=== PATIENT | male | born 1990 | race Caucasian/White ===

== ENCOUNTER 2019-10-22 11:04 | Emergency (ER) | payer MEDICAID ==
[~2019-10-22] VITALS: Ht 172.7 cm; Wt 70.5 kg
[~2019-10-22 11:04] MED LIST: HYDR-4383 PO
[2019-10-22] MEDS ORDERED: NO HOME MEDS (11:17)
--- NOTE | 2019-10-22 11:35 | NUR ---
COLLECTED PT'S BELONGINGS, AND PLACED THEM IN THE LOCKER LOCATED IN ROOM 27.
--- NOTE | 2019-10-22 11:36 | NUR ---
THE PHONE NUMBER FOR YAMILET (PT'S ) IS [phone].
--- NOTE | 2019-10-22 11:40 | NUR ---
Spoke with patient regarding whether or not patients wants to give out information to friends waiting in parking lot for update. Patient stated that he would like me to let them know that he is ok. I spoke with Pasquale, patients "best friend", and notified regarding patients request for me to just let him know he was ok. Pasquale stated that they had brought him in last night to [facility] at which he eloped and Pasquale stated that patient was at his house this morning prior to him going to work. Patient stated that [facility] had discharge him, but when pasquale had spoke with [facility] they stated that he had eloped. Per pasquale they then when back to [facility] at which [facility] told them he was no longer a patient with them and that they should go to [facility]. Pasquale took patient to [facility] and 5150 was written. Pasquale stated that patient has been threatening and having paranoid dillutional thoughts about his baby not being his, ect. Patients Cass andre, had told pasquale that she felt unsafe with patient in the house because of dillutions, intermittent agitation and aggression. Per Pasquale this is a new behavior meter changes records clerk the last few weeks. Patient is not currently suicidal and/or homicidal. ABI Keenan notified regarding friends and families concerns.
--- NOTE | 2019-10-22 11:47 | NUR ---
FRIENDS: TONYA YBARRA [phone] IRMA [phone]
--- NOTE | 2019-10-22 12:07 | NUR ---
PATIENT ANSWERS QUESTIONS APPROPIATELY, BUT NOW STATES HE NEEDS SLEEP, AND IS CONTROLLED WITH CANNIBOIDS. HE CONTINUES TO THINK, HE IS GOING TO LEAVE.
--- NOTE | 2019-10-22 12:11 | NUR ---
STATES "HE WON'T TELL ANYBODY ANDYTHING" AND HE IS TRYING TO EXPIDITE THIS PROCESS, EVERYTIME I EDUCATED HIM HE WILL BE HERE FOR 72HRS HE QUIETED. TWIN SISTER ON PHONE STATES, PATIENT HASN'T SLEEPING, HIS MOTHER USED DRUGS 14 YRS AGO SHE IS THINKING PTSD. MONDAY PATIENT WAS GIVEN SIX PILLS OF SEROQUEL, AND TAKEN FOUR SINCE.
[2019-10-22 12:13] LABS: CLARITY,URINE CLEAR (Clear); COLOR,URINE YELLOW (Yellow); GLUCOSE, URINE NEGATIVE (Neg); KETONES,URINE TRACE mg/dl (Neg); LEUKOCYTE ESTERASE ,URINE NEGATIVE (Neg); NITRITES, URINE NEGATIVE (Neg); OCCULT BLOOD,URINE TRACE-INTACT (Neg); PH,URINE 6.5 (4.8-8.0); PROTEIN,URINE NEGATIVE (Neg)
[2019-10-22 12:15] LABS: BASOPHILS % (AUTO) 0.5 % (0-1); EOSINOPHILS % (AUTO) 0.3 % (0-6); HEMATOCRIT 46.9 % (42.0-52.0); HEMOGLOBIN 16.1 g/dl (14.0-17.9); LYMPHOCYTES # (AUTO) 1.2 X10'3 (1.1-4.8); LYMPHOCYTES % (AUTO) 15.2 % (21-51); MEAN CORPUSCULAR HEMOGLOBIN 31.1 PG (27.0-31.0); MEAN CORPUSCULAR HGB CONC 34.3 g/dL (33.0-36.5); MEAN CORPUSCULAR VOLUME 90.8 FL (78-98); MEAN PLATELET VOLUME 9.3 FL (7.4-10.4); MONOCYTES # (AUTO) 0.7 X10'3 (0-0.9); MONOCYTES % (AUTO) 8.5 % (2-12); NEUTROPHILS # (AUTO) 5.9 X10'3 (1.8-7.7); NEUTROPHILS % (AUTO) 75.5 % (42-75); PLATELET COUNT 252 X10'3 (140-440); RED BLOOD COUNT 5.16 X10'6 (4.70-6.10); WHITE BLOOD COUNT 7.8 X10'3 (4.5-11.0)
[2019-10-22 12:17] LABS: URINE AMPHETAMINE SCREEN NEGATIVE (Neg); URINE BARBITUATE SCREEN NEGATIVE (Neg); URINE BENZODIAZEPINES SCREEN NEGATIVE (Neg); URINE CANNABINOID SCREEN POSITIVE (Neg); URINE COCAINE SCREEN NEGATIVE (Neg); URINE METHADONE SCREEN NEGATIVE (Neg); URINE OPIATE SCREEN NEGATIVE (Neg); URINE PHENCYCLIDINE SCREEN NEGATIVE (Neg)
[2019-10-22 12:20] LABS: UA COLLECTION TYPE CLN CATCH MIDSTREAM
[2019-10-22 12:21] LABS: BACTERIA,URINE NONE SEEN /HPF (Neg); RBC,URINE 0-2 /HPF (0-2); SQUAMOUS EPITHELIAL CELL,UR FEW /LPF (FEW); WBC,URINE NONE SEEN /HPF (0-4)
[2019-10-22 12:25] LABS: ALANINE AMINOTRANSFERASE 25 U/L (12-78); ALBUMIN 4.6 G/DL (3.4-5.0); ALBUMIN/GLOBULIN RATIO 1.4 (1.1-1.5); ALKALINE PHOSPHATASE 61 IU/L (46-116); ANION GAP 6 (8-16); ASPARTATE AMINO TRANSFERASE 24 U/L (10-37); BILIRUBIN,TOTAL 0.8 MG/DL (0.1-1.0); BLOOD UREA NITROGEN 10 MG/DL (7-18); BUN/CREATININE RATIO 8.5 (5.4-32.0); CALCIUM 9.5 MG/DL (8.5-10.1); CHLORIDE 105 MMOL/L (99-107); CREATININE 1.17 MG/DL (0.60-1.10); GLUCOSE 165 MG/DL (70-104); POTASSIUM 4.3 MMOL/L (3.5-5.1); SODIUM 142 MMOL/L (135-145); TOTAL PROTEIN 7.8 G/DL (6.4-8.2); eGFR 74 ML/MIN
[2019-10-22] MEDS ORDERED: LORazepam 1 MG tablet PO ONE ×2 (13:15→20:35)
[2019-10-22 13:45] LABS: ETHANOL < 0.010 GM/DL (0.0-0.010)
[2019-10-22] MEDS ORDERED: haloperidol lactate 5mg/ml inj IM ONE (13:45)
[2019-10-22] MEDS ORDERED: diphenhydrAMINE 50 mg/ml inj IM ONE (13:45)
--- NOTE | 2019-10-22 13:53 | NUR ---
Patient constantly asking for the phone, calling all family stating "he is getting out of here soon" and I have to interupt and remind him "he is staying for an evaluation" Just spoke to his girlfriend Cass and she stated "this has been going on for five days"
--- NOTE | 2019-10-22 14:03 | NUR ---
DREW MONTEJO PT'S TWIN SISTER'S PHONE NUMBER IS [phone]
--- NOTE | 2019-10-22 14:47 | NUR ---
Patient came up to the counter again, asking "when he is leaving because he is 100% himself"
--- NOTE | 2019-10-22 15:36 | NUR ---
FRIEND DAVID CALLED TO CHECK IN ON PT. HIS PHONE NUMBER IS [phone].
--- NOTE | 2019-10-22 16:10 | NUR ---
pt was accepted up to [facility] at [address] Tobias, no time of transfer has been given
--- NOTE | 2019-10-22 18:34 | NUR ---
Report to Racheal ALEX
--- NOTE | 2019-10-22 19:08 | NUR ---
The patient has been up on the unit and frequently intrussive up to the nursing station. He is accepting redirection at this time. He is hyperverbal. His mood is elevated. He is grandiose and believes that his "Dot" is to make others happy. He has poor insight and believes he is here "to help his friends" "My friends are concerned about my well being" He reports he has not been sleeping well at home. He frequentlyl asking to go home.
--- NOTE | 2019-10-22 19:48 | NUR ---
The patient was made aware that he will transferred to [facility] around 9PM. He accepted that without becoming upset. Understands he needs to be stabilized prior to being sent home.
--- NOTE | 2019-10-22 20:57 | NUR ---
The patient is labile in his mood. Forgetful that he is being admitted upstairs and stated he needs to leave immediately to go home to his family. Provider made aware and orders received for ativan 2mg. The patient is declining medication at this time. At this time he does not meet criteria for involuntary medications.
[2019-10-22 21:33] VITALS: BP 133/88
== END 2019-10-22 21:36 ==
LOC: ER 11:04
DX: F29 Unspecified psychosis not due to a substance or known physiological condition (principal); F12.90 Cannabis use, unspecified, uncomplicated; F15.90 Other stimulant use, unspecified, uncomplicated; Z87.891 Personal history of nicotine dependence
CPT/HCPCS: 36415; 80053; 80305; 80320; 81001; 84443; 85025; 99285

== ENCOUNTER 2019-10-22 16:00 | Inpatient (IN) | payer MEDICAID ==
[~2019-10-22] VITALS: Ht 172.7 cm; Wt 70.5 kg
[~2019-10-22 16:00] MED LIST changes: +NO HOME MEDS
[2019-10-22] MEDS ORDERED: acetaminophen 325mg tablet PO PRN ×2 (22:05)
[2019-10-22] MEDS ORDERED: LORazepam 1 MG tablet PO PRN (22:05)
[2019-10-22] MEDS ORDERED: loperamide 2mg capsule PO PRN (22:05)
[2019-10-22] MEDS ORDERED: mag hydrox/Alum hydrox/simeth 30ml oral suspension PO PRN (22:05)
[2019-10-22] MEDS ORDERED: magnesium hydroxide 30ml (MOM) UD suspension PO PRN (22:05)
[2019-10-22] MEDS: traZODone 50mg tablet PO PRN (22:37)
[2019-10-22] MEDS: hydrOXYzine 25 MG tablet PO PRN (22:38)
[2019-10-22] MEDS ORDERED: LORazepam 0.5 MG tablet PO PRN (22:58)
--- NOTE | 2019-10-22 23:12 | NUR ---
ADMIT NOTE: The patient entered the unit at 2210. He was checked for contraband, vitals recorded, then he was sent to the shower where 2 person skin check performed. His skin is intact with no visible wounds. After shower the patient was shown to his room and the rest of the unit. he was offered a snack, but he refused. The patient's friend reports he had recently went to [place], [place], met up with a childhood friend who reportedly struggles with methamphetamine abuse. When the patient returned, he was not the same. The patient admits to recent use of Marijuana. Patient presents with elevated affect, agitated, disorganized, confused, and becomes increasingly agitated at any mention of mental health symptoms. The patient's fiance Cass, via phone, and friends report they do not feel safe around him, and is unable to keep him safe in a home environment.
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
[2019-10-23 06:50] LABS: HEMOGLOBIN A1C 5.4 % (4.5-6.2)
[2019-10-23 06:54] LABS: CHOL/HDL RATIO 2.4 (0.00-4.99); CHOLESTEROL 177 MG/DL (0-200); HDL CHOLESTEROL 75 MG/DL (35-60); LDL CHOLESTEROL 84 MG/DL (50-100); TRIGLYCERIDES 41 MG/DL (20-135)
[2019-10-23 08:20] VITALS: BP 124/81
--- NOTE | 2019-10-23 10:00 | NUR ---
Group Therapy: Process Group This Clinicians goals for this process group were as follows: (1) Ask scaling questions about patients current anxiety, depression, and irritability symptoms as a check-in. (2) Share psychoeducation about three rules of brief solution-focused problem-solving: A) Stop doing what clearly isnt working, B) Do something different, C) If the different activity works, then do more of it. If it doesnt work, then go back to principle A). (3) Identify examples of thoughts, activities, and behaviors that people do that no longer work for them, or they create more problems than solutions. (4) Identify examples of thoughts, activities, and behaviors that may help create better emotional/behavioral outcomes and lead to good solutions to problems. (5) Engage patients in discussion of the topics shared within the group milieu. Patient identified experiencing the following levels of anxiety, depression, and anger/irritability while present in the group milieu. Anxiety: 05/24 Depression: 05/24 Anger/irritability: 05/24 Patient presented as open and cooperative within the group milieu. Patient was dressed in nondescript personal attire--a siegel t-shirt and black shorts. Patient presented as verbally engaged in discussing the topic of brief solution-focused problem-solving techniques. As this Clinician discussed potential problems that patients may encounter in life, Patient asked why this Clinician was focusing on, "Negativity, instead of positivity." This Clinician validated Patient's comment and shared that he was addressing negativity and problem-oriented thinking only so the group could focus on interventions, actions, and thoughts that would generate more positivity in their lives as they focused on doing, "Something differently," which--in turn--may generate more positive outcomes in their lives. Per this Clinician's impression, AEB Patient's comments, he understood this answer. Patient presented as slightly hyperverbal on occasion, as evidenced by, occasionally speaking over this Clinician or other Patients in the group milieu. However this Clinician found these interruptions to be minimally distracting as his comments served to advance productive conversation of the interventions being discussed within the group milieu. Joaquim Pathak MA, CHARGE ENTRY Addendum: 10/23/19 at 1148 by Joaquim SILVA Amended: Links added.
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
[2019-10-23 19:00] VITALS: BP 142/67
[2019-10-23] MEDS ORDERED: diphenhydrAMINE 50 mg/ml inj IM ONE (22:35)
[2019-10-23] MEDS ORDERED: LORazepam 2 mg/ml vial IM ONE (22:35)
[2019-10-23] MEDS ORDERED: haloperidol lactate 5mg/ml inj IM ONE (22:35)
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
--- NOTE | 2019-10-24 03:43 | NUR ---
FAMILY CONTACT: Pt's twin sister called the unit and spoke with patient and patient requested I speak to sister. Sister reports that the patient had been in his normal state of mind, but has been under alot of stress, including being concerned about his childhood friend that had been having issues due to drugs. She reports that when Philippe arrived in [place] to visit his friend that he appeared to be having issues on arrival, including not sleeping. She states she spoke with the friend and asked if Philippe used any drugs while he visited and he told her no, and she believes this to be true.
[2019-10-24 08:00] VITALS: BP 123/82
[2019-10-24] MEDS: haloperidol 5mg tablet PO PRN (09:04)
[2019-10-24] MEDS: LORazepam 1 MG tablet PO PRN (09:04)
[2019-10-24] MEDS: diphenhydrAMINE 25mg capsule PO PRN (09:05)
--- NOTE | 2019-10-24 10:00 | NUR ---
Group Therapy: Process Group This Clinicians goals for this process group were as follows: (1) Ask scaling questions about patients current anxiety, depression, and irritability symptoms as a check-in. (2) Share psychoeducation about emotional relaxation techniques with patients, including information on: mindfulness, meditation controlled breathing, progressive muscle relaxation, guided visualization. (3) Model and practice controlled breathing, progressive muscle relaxation, and guided visualization with patients within the group milieu. (4) Process patients comments and reflections on the before-mentioned activities after they have participated in them. Patient identified experiencing the following levels of anxiety, depression, and anger/irritability while present in the group milieu. Anxiety: 05/24 Depression: 05/24 Anger/irritability: 05/24 Patient presented as open and cooperative within the group milieu. Patient was dressed in nondescript personal clothing that was appropriate within the group milieu. Patient presented as nonobtrusive within the group milieu. During discussion of the topic of guided visualization, Patient reported that he identified [facility] as a "Safe place," that he identified being at when he was 4 years-old. Per this Clinician's observation, Patient was actively engaged in the practice of controlled breathing and progressive muscle relaxation when it was discussed, modeled and practiced alongside this Clinician within the group milieu. Patient briefly left the group milieu, after asking for a blanket, and then returned with said blanket around his shoulders and body at the end of the process group. Joaquim Pathak MA, CONRAD Addendum: 10/24/19 at 1141 by Joaquim Pathak SS Amended: Links added.
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
[2019-10-24 19:00] VITALS: BP 176/112
[2019-10-24] MEDS: traZODone 50mg tablet PO PRN (22:05)
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
[2019-10-25 07:59] VITALS: BP 109/79
--- NOTE | 2019-10-25 09:28 | NUR ---
PSYCHOSOCIAL ASSESSMENT Imtiaz is a 29 y/o male who was placed on 5150 after he presented for a crisis evaluation at [facility]. He had been previously on a 5150 at [facility] and had AWOl'd. Imtiaz reported he recently went to [place], [place], with his fiance, Cass, and her family to check out if they want to move there. Imtiaz was a poor historian. He presented with rapid, pressured speech, flight of ideas, and was hyper-anglican. Oil Well Engineer called Cass to gather information. She reported when they returned from [place] on 10/16/19 Imtiaz began acting strange. She reported he was "not himself" and was sleeping and eating very little. She reported this is the first time she has witnessed his bizarre behavior. She noted they have been together for the last 4 years. She reported this is the first time Imtiaz has been psychiatrically hospitalized. She confirmed that Imtiaz has been working for [employer] and [employer]. CONRAD Fraser Addendum: 10/25/19 at 0928 by Denise Tompkins SS Amended: Links added.
--- NOTE | 2019-10-25 10:00 | NUR ---
Group Therapy: Process Group This Clinicians goals for this process group were as follows: (1) Ask scaling questions about Patients current anxiety, depression, and irritability symptoms as a check-in. (2) Share psychoeducation about the importance of being able to identify regular activities, support people, and thoughts (Anchors) that contribute to mental health well-being and stability. (3) Share psychoeducation about how the gradual removal of said activities, people and behaviors may lead to the erosion of mental well-being and stability. (4) Encourage Patients to identify support anchors that they need to maintain in their life that will promote their mental and emotional well-being. (5) Engage Patients in discussion of the topics shared within the group milieu. Patient identified experiencing the following levels of anxiety, depression, and anger/irritability while present in the group milieu. Anxiety: 06/24 Depression: 05/24 Anger/irritability: 05/24 Patient presented as open and cooperative within the group milieu. Patient was dressed in non-descript personal clothing that was appropriate within the group milieu, per this Clinician's impression. Patient presented as slightly hyper-verbal within the group milieu; however, this Clinician did not need to provide any prompts for redirection as the vast majority of patient's comments were appropriate for the topic being discussed on activities, people, thoughts and routines that helps anchor one to a place of positive mental and emotional health. Patient stood suddenly in group on several occasions, but--per this Clinician's impression--he did not act in an obtrusive fashion to draw attention to himself during these episodes. Patient presented as verbally engaged in talking about grounding/anchoring people, thoughts, activities, and situation that could assist him in staying in a balanced stated in the context of his emotional/mental health. Joaquim Pathak MA, EQUIPMENT STERILIZER Addendum: 10/25/19 at 1143 by Joaquim Pathak Amended: Links added.
--- NOTE | 2019-10-25 14:01 | NUR ---
RN PROGRESS: Raymond LEGAL HOLD: 5150 for DTS. ADMISSION: Clients behavior changed, causing concern for significant other and family. Client presents with full affect and expansive mood. TP is linear. Client is on a LOS as he has actively attempted to exit the unit and is intrusive with other clients. THIS SHIFT: Client on LOS for safety to start this shift. He is much improved today and displays a little insight into his condition and diagnosis. He is more social and his behaviors have been appropriate for unit. Staffed case with CN and Mr. Gillespie and it was determined to discontinue LOS observations at 0845 hours. Client verbalized a good understanding of criteria for discontinuance LOS and stated he would comply with unit rules. Client went outside with group today and behaviors were totally appropriate. Client attended AM group as well and participated in an appropriate manner. Client behaviors have been excellent this shift. He contracts for safe behavior on unit and is directable. There have been no behavioral issues noted this shift. DISCHARGE: Client is cooperative with medications and treatment. The client lacks insight and displays improving judgement. Client is a risk for readmission due to behavior and impulsivity. Mental Status Exam: Appearance: Neat, clean and appropriately dressed Eye contact: Good Behavior: Pleasant and cooperative, listening to headphones Speech: Clear, audible Mood: bright Affect: Congruent Thought process: Circumstantial Thought Content: Wants to help everybody on unit. . Cognition: A&O x 4 Insight: fair Judgment: Fair Interventions: PRN's used: DISCHARGE: Client is resisting medications and treatment. The client lacks insight and displays poor judgement. Client is a risk for readmission due to behavior and impulsivity. Addendum: 10/25/19 at 1645 by Masood Orozco RN Client was given a PRN of Ativan per orders for agitation. Client sought out this personal lines underwriter and requested medication. There was no behavioral lead up to the administration of the Ativan.
[2019-10-25] MEDS: LORazepam 1 MG tablet PO PRN (16:18)
[2019-10-25 19:47] VITALS: BP 122/80
[2019-10-25] MEDS ORDERED: quetiapine 100mg tablet PO SCH (21:00)
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
[2019-10-26 07:47] VITALS: BP 110/60
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
[2019-10-26] MEDS: NICOTINE POLACRILEX 2 MG LOZENGE BC PRN ×2 (19:16→21:41)
[2019-10-26 20:00] VITALS: BP 141/82
[2019-10-26] MEDS: quetiapine 100mg tablet PO SCH (20:05)
[2019-10-26] MEDS ORDERED: LORazepam 1 MG tablet PO ONE (21:30)
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
[2019-10-27] MEDS: LORazepam 1 MG tablet PO PRN ×2 (07:02→14:32)
[2019-10-27] MEDS: NICOTINE POLACRILEX 2 MG LOZENGE BC PRN ×4 (07:02→19:03)
[2019-10-27 07:50] VITALS: BP 118/85
--- NOTE | 2019-10-27 09:37 | NUR ---
PO 75-100% avg vegetarian diet meeting needs. AMADEO d/w RN regarding B12 supplementation on vegetarian diet. [facility] 10/23. No nutrition concerns at this time. Addendum: 10/27/19 at [address] Amended: Links added.
--- NOTE | 2019-10-27 11:40 | NUR ---
Nursing Progress Note: Legal hold: 5250 Expires 11/07 @ 2158 Client on involuntary status for GD Report received from [facility] with use of SBAR Why are they here: The patient's friend reports he had recently went to [place], [place], met up with a childhood friend who reportedly struggles with methamphetamine abuse. When the patient returned, he was not the same. The patient admits to recent use of Marijuana. Patient presents with elevated affect, agitated, disorganized, confused, and becomes increasingly agitated at any mention of mental health symptoms. The patient's fianc Cass, via phone, and friends report they do not feel safe around him, and unable to keep him safe in a home environment. Assessment What has happened this shift: Patient was already awake and visible on the unit at shift change. Client is very focused on exercise at the beginning of the shift. He completed s video on chair yoga, Pilates, and also did some weight lifting. Then he participated in kick boxing and pushups. He exercised from breakfast time on until lunch time. He is perseverative concerning his nicotine lozenges. He continues to ask for them multiple times insisting that someone told him they are due every two hours. He misses his family and his fianc. He states he slept well last night. He no longer wants to be a vegan. He is now asking that he be fed a regular diet with meat. S/I, H/I: Patient denies both. A/VH: Patient denies both. Sleep: No naps ADL's: Independent Group attendance: Yes Were meds taken: Yes Any med S/E: None observed or reported. Mental Status Exam Appearance: Clean, neat, showered today Eye contact: Good Behavior: cooperative, pleasant, hypomanic Speech: Clear, audible, normal rate/rhythm. Mood: I want to see my family Affect: Congruent with mood Thought process: Disorganized Thought Content: Trying to come up with things to do, Cognition: A/O X 4 Insight: Poor Judgment: Poor Interventions PRN's used: None Therapeutic interventions: 1:1 assessment, active listening, therapeutic conversation, behavior monitoring and intervention; reality orientation, limit setting, redirection, positive reinforcement, medication administration/monitoring, Q15 min safety checks. Restraints/seclusion/emergency medication: None Justification of Continued Inpatient Treatment: Patient requires further medication adjustment to stabilize current crisis in a safe and therapeutic environment to prevent harm to patient or others and/or readmission.
[2019-10-27] MEDS: haloperidol 5mg tablet PO PRN (13:15)
--- NOTE | 2019-10-27 13:17 | NUR ---
Patient becoming more and more agitated. He is stating that he is looking at the doors and is wanting to leave. He is asking for something that works better than the Ativan. He was given Haldol with good result
[2019-10-27] MEDS: diphenhydrAMINE 25mg capsule PO PRN (14:32)
[2019-10-27] MEDS: quetiapine 100mg tablet PO SCH (20:07)
[2019-10-27 20:32] VITALS: BP 124/73
--- NOTE | 2019-10-27 22:25 | NUR ---
Nursing Progress Note: Legal hold: 5250 Expires 11/07 @ 2152 Client on involuntary status for GD Report received from [facility] with use of SBAR Why are they here: The patient's friend reports he had recently went to [place], [place], met up with a childhood friend who reportedly struggles with methamphetamine abuse. When the patient returned, he was not the same. The patient admits to recent use of Marijuana. Patient presents with elevated affect, agitated, disorganized, confused, and becomes increasingly agitated at any mention of mental health symptoms. The patient's fianc Cass, via phone, and friends report they do not feel safe around him, and unable to keep him safe in a home environment. Assessment What has happened this shift: Patient was up and on the unit watching tv in rec room socializing with peers in the may. Pt asked for a nicotine lozenge and was med compliant this shift. Pt was pleasant and cooperative this shift. No agitation noted this shift. S/I, H/I: Patient denies both. A/VH: Patient denies both. Sleep: No naps ADL's: Independent Group attendance: Yes Were meds taken: Yes Any med S/E: None observed or reported. Mental Status Exam Appearance: Clean, neat, showered today Eye contact: Good Behavior: cooperative, pleasant, hypomanic Speech: Clear, audible, normal rate/rhythm. Mood: I want to see my family Affect: Congruent with mood Thought process: Disorganized Thought Content: Trying to come up with things to do, Cognition: A/O X 4 Insight: Poor Judgment: Poor Interventions PRN's used: None Therapeutic interventions: 1:1 assessment, active listening, therapeutic conversation, behavior monitoring and intervention; reality orientation, limit setting, redirection, positive reinforcement, medication administration/monitoring, Q15 min safety checks. Restraints/seclusion/emergency medication: None Justification of Continued Inpatient Treatment: Patient requires further medication adjustment to stabilize current crisis in a safe and therapeutic environment to prevent harm to patient or others and/or readmission.
[2019-10-28] MEDS: NICOTINE POLACRILEX 2 MG LOZENGE BC PRN ×3 (07:21→15:23)
[2019-10-28] MEDS: hydrOXYzine 25 MG tablet PO PRN (07:36)
[2019-10-28 08:13] VITALS: BP 110/71
--- NOTE | 2019-10-28 10:00 | NUR ---
Group Therapy: Process Group This Clinicians goals for this process group were as follows: (1) Ask scaling questions about Patients current anxiety, depression, and irritability symptoms as a check-in. (2) Share psychoeducation about emotional escalation as it relates to stress and negative symptoms, Fight, flight, freeze. (3) Share psychoeducation on principles of mindfulness and emotional relaxation techniques that Patients may utilize to reduce the acuity of unwanted emotional escalation. (4) Provide psychoeducation on the STOPP acronym: Stop, Take a Breath, Observe the situation, Put things into perspective, and, Practice what works. (5) Process Clients thoughts and reflections on this topic within the group milieu. Patient identified experiencing the following levels of anxiety, depression, and anger/irritability while present in the group milieu. Anxiety: 05/24 Depression: 05/24 Anger/irritability: 05/24 Patient presented as open and cooperative within the group milieu. Patient was dressed in nondescript clothing that was appropriate for the setting. Patient presented as nonobtrusive within the group milieu. He occasionally would stand within the group milieu, sometimes answering questions while standing. However, per this Clinician's impression, Patient was not making attempts to draw unnecessary attention to himself. Patient presented as verbally engaged in discussing the STOPP process for controlling unwanted symptoms of emotional escalation. Patient mentioned that he was was practicing controlled breathing in order calm down. Joaquim Pathak MA, CONRAD Addendum: 10/29/19 at 0809 by Joaquim Pathak SS Amended: Links added.
--- NOTE | 2019-10-28 12:33 | NUR ---
good appetite. PO 75% avg and now on regular diet versus vegan and meeting needs. Rec: 1. continue regular diet 2. bowel care as needed 3. weekly wts Addendum: 10/28/19 at [address] Amended: Links added.
[2019-10-28] MEDS: LORazepam 1 MG tablet PO PRN (14:16)
[2019-10-28] MEDS ORDERED: HYDR-3686 PO (14:24)
[2019-10-28] MEDS ORDERED: QUET100T33 PO (14:24)
--- NOTE | 2019-10-28 14:39 | NUR ---
DISCHARGE PLANNING Completed and faxed [facility] referral. Imtiaz reported he plans on returning home with his fiance. 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 He denied any current SI or HI. Speech was coherent and absent of any obvious delusions or paranoia. CONRAD Fraser
--- NOTE | 2019-10-28 15:30 | NUR ---
DISCHARGE NOTE: Pt. discharged to home picked up by gus in car. RN reviewed f/u plan and home medication regimen with pt. Pt. verbalizes understanding. Pt. discharged with scripts. Pt. received all belongings. Pt. calm and cooperative and shows no signs of distress. Pt. refused nicotine replacement. Pt. denies SI/HI, A/V hallucinations.
== END 2019-10-28 15:30 | disposition home or self-care (01) | DRG 753 ==
LOC: ADULT MH 16:00
PROVIDERS: ADMIT Psychiatry & Neurology Psychiatry; ATTEND Psychiatry & Neurology Psychiatry
DX: F31.9 Bipolar disorder, unspecified (principal); F12.90 Cannabis use, unspecified, uncomplicated; F15.90 Other stimulant use, unspecified, uncomplicated; Z87.891 Personal history of nicotine dependence
CPT/HCPCS: 36415; 80061; 83036; 87081; J1200; J1630; J2060; Q0163; Q0177

== ENCOUNTER 2019-11-08 09:33 | Emergency (ER) | payer MEDICAID ==
[~2019-11-08] VITALS: Ht 172.7 cm; Wt 68.0 kg
[~2019-11-08 09:33] MED LIST changes: +HYDR-3686 PO; -HYDR-4383 PO; +QUET100T33 PO
[2019-11-08 09:36] VITALS: BP 114/77
== END 2019-11-08 10:02 | disposition home or self-care (01) ==
LOC: ER 09:33
DX: Z00.00 Encounter for general adult medical examination without abnormal findings (principal); M79.644 Pain in right finger(s); F15.90 Other stimulant use, unspecified, uncomplicated; Z72.89 Other problems related to lifestyle; Z79.899 Other long term (current) drug therapy
CPT/HCPCS: 99281

== ENCOUNTER 2019-11-17 12:34 | Emergency (ER) | payer MEDICAID ==
[~2019-11-17] VITALS: Ht 172.7 cm; Wt 66.0 kg
[2019-11-17 12:44] VITALS: BP 126/75
== END 2019-11-17 14:05 | disposition home or self-care (01) ==
LOC: ER 12:35
DX: Z00.8 Encounter for other general examination (principal); R42 Dizziness and giddiness; F41.9 Anxiety disorder, unspecified; F12.90 Cannabis use, unspecified, uncomplicated; Z72.89 Other problems related to lifestyle; Z79.899 Other long term (current) drug therapy
CPT/HCPCS: 99281; 99282

== ENCOUNTER 2019-11-28 23:53 | Emergency (ER) | payer MEDICAID ==
[~2019-11-28] VITALS: Ht 172.7 cm; Wt 68.2 kg
--- NOTE | 2019-11-29 00:21 | NUR ---
PT DOES NOT APPEAR TO BE CONSISTENTLY TAKING HIS PRESCRIBED MEDICATIONS THE AMOUNT IN THE BOTTLES DO NOT MATCH WITH THE AMOUNT THAT SHOULD BE LEFT. BOTTLES APPEAR TO BE MOSTLY FULL ALTHOUGH RX WAS FILLED ON 10/28/19 FOR A 30 DAY SUPPLY.
[2019-11-29] MEDS ORDERED: nicotine 21mg patch - 24 hr TD ONE (00:25)
[2019-11-29 00:31] LABS: BASOPHILS # (AUTO) 0.1 X10'3 (0-0.2); BASOPHILS % (AUTO) 0.7 % (0-1); EOSINOPHILS # (AUTO) 0.1 X10'3 (0-0.9); EOSINOPHILS % (AUTO) 0.9 % (0-6); HEMATOCRIT 44.2 % (42.0-52.0); HEMOGLOBIN 15.1 g/dl (14.0-17.9); LYMPHOCYTES # (AUTO) 1.4 X10'3 (1.1-4.8); LYMPHOCYTES % (AUTO) 17.3 % (21-51); MEAN CORPUSCULAR HEMOGLOBIN 31.1 PG (27.0-31.0); MEAN CORPUSCULAR HGB CONC 34.2 g/dL (33.0-36.5); MONOCYTES # (AUTO) 0.7 X10'3 (0-0.9); MONOCYTES % (AUTO) 7.9 % (2-12); NEUTROPHILS % (AUTO) 73.2 % (42-75); PLATELET COUNT 251 X10'3 (140-440); RED BLOOD COUNT 4.86 X10'6 (4.70-6.10); RED CELL DISTRIBUTION WIDTH 13.5 % (11.5-14.5); WHITE BLOOD COUNT 8.3 X10'3 (4.5-11.0)
[2019-11-29 00:37] LABS: CLARITY,URINE CLEAR (Clear); COLOR,URINE YELLOW (Yellow); GLUCOSE, URINE NEGATIVE (Neg); KETONES,URINE NEGATIVE (Neg); LEUKOCYTE ESTERASE ,URINE NEGATIVE (Neg); NITRITES, URINE NEGATIVE (Neg); OCCULT BLOOD,URINE SMALL (Neg); PH,URINE 5.5 (4.8-8.0); PROTEIN,URINE NEGATIVE (Neg); UA COLLECTION TYPE URINAL
[2019-11-29 00:44] LABS: BACTERIA,URINE NONE SEEN /HPF (Neg); RBC,URINE 0-2 /HPF (0-2); SQUAMOUS EPITHELIAL CELL,UR FEW /LPF (FEW); WBC,URINE 0-4 /HPF (0-4)
[2019-11-29 00:45] LABS: CAL OXALATE CRYSTALS 1+ /HPF (NEGATIVE)
[2019-11-29 00:47] LABS: ALANINE AMINOTRANSFERASE 23 U/L (12-78); ALBUMIN 4.2 G/DL (3.4-5.0); ALBUMIN/GLOBULIN RATIO 1.3 (1.1-1.5); ALKALINE PHOSPHATASE 75 IU/L (46-116); ANION GAP 8 (8-16); ASPARTATE AMINO TRANSFERASE 13 U/L (10-37); BILIRUBIN,TOTAL 0.7 MG/DL (0.1-1.0); BLOOD UREA NITROGEN 10 MG/DL (7-18); BUN/CREATININE RATIO 8.8 (5.4-32.0); CALCIUM 9.1 MG/DL (8.5-10.1); CHLORIDE 105 MMOL/L (99-107); CREATININE 1.13 MG/DL (0.60-1.10); ETHANOL 0.023 GM/DL (0.0-0.010); GLUCOSE 96 MG/DL (70-104); POTASSIUM 3.7 MMOL/L (3.5-5.1); SODIUM 142 MMOL/L (135-145); TOTAL CARBON DIOXIDE 28.8 MMOL/L (24-32); TOTAL PROTEIN 7.5 G/DL (6.4-8.2); eGFR 77 ML/MIN
[2019-11-29] MEDS ORDERED: diphenhydrAMINE 50 mg/ml inj IM ONE ×2 (00:50→18:20)
[2019-11-29] MEDS ORDERED: LORazepam 2 mg/ml vial IM ONE ×2 (00:50→18:20)
[2019-11-29] MEDS ORDERED: haloperidol lactate 5mg/ml inj IM ONE ×2 (00:50→18:20)
[2019-11-29 00:54] LABS: ACETAMINOPHEN < 2.0 UG/ML (10-30)
[2019-11-29 00:55] LABS: URINE AMPHETAMINE SCREEN NEGATIVE (Neg); URINE BARBITUATE SCREEN NEGATIVE (Neg); URINE BENZODIAZEPINES SCREEN NEGATIVE (Neg); URINE CANNABINOID SCREEN POSITIVE (Neg); URINE COCAINE SCREEN NEGATIVE (Neg); URINE METHADONE SCREEN NEGATIVE (Neg); URINE OPIATE SCREEN POSITIVE (Neg); URINE PHENCYCLIDINE SCREEN NEGATIVE (Neg)
--- NOTE | 2019-11-29 01:11 | NUR ---
PT IS NOT THINKING CLEARLY AND UNABLE TO UNDERSTAND THE 5150 HOLD, ALTHOUGH HE HAS BEEN THROUGH THIS BEFORE. HE REGULARLY REQUESTING TO TALK TO HIS DR AND TO TALK TO THE OFFICER. I REPEAT THAT BOTH HAVE SPOKEN WITH HIM AND EXPOLANED WHAT IS GOING ON AND HE IS NOT REMEMBERING. PT RESTLESS AND STANDING AT THE DOOR OF HIS ROOM AND WANTING TO LEAVE AND APPEARS ANGRY. DR. SCHAFFER OBSERVING PT AND ORDERING IM MEDS. ALSO GIVEN NICOTINE PATCH. PT INITIALLY STATING HE DOES NOT NEED ANY MEDS AND THAT HE TOOK HIS MEDS TONIGHT. SECURITY AT BEDSIDE AND ADTL STAFF AND PT ENCOURAGE TO GET INTO HIS BED. HE LAY THERE CALMLY FOR THE INJECTIONS.
--- NOTE | 2019-11-29 02:54 | NUR ---
PT IS SLEEPING PEACFULLY, LYING ON HIS RIGHT SIDE WITH RR 12 AND VSS. AWAKENED TO SOFT VOICE TO TAKE VS, THEN WENT BACK TO SLEEP.
--- NOTE | 2019-11-29 05:40 | NUR ---
pt remains asleep.
--- NOTE | 2019-11-29 11:20 | NUR ---
Nursing Note: Pt transferred to bed #23 in ED overflow at 1055. Nursing report received from [facility]. Pt cooperative. He stands watching other patients and smiles. Will continue to monitor.
--- NOTE | 2019-11-29 11:46 | NUR ---
Nursing Note: Pt has signs of hypomania, he is labile and easily agitated. He does not feel that he should be here. He was crying saying that no one can help him. Dr. Noriega request consult from [facility] provider. Called [facility] for psychiatric consult and medication recommendation. Spoke with JAZMIN Simms and she will notify the provider. Will continue to monitor.
--- NOTE | 2019-11-29 12:39 | NUR ---
pt resting on gurney. no signs of distress.
[2019-11-29] MEDS ORDERED: LORazepam 1 MG tablet PO PRN (13:35)
[2019-11-29] MEDS ORDERED: quetiapine 100mg tablet PO ONE (13:35)
[2019-11-29] MEDS ORDERED: quetiapine 100mg tablet PO PRN (13:40)
--- NOTE | 2019-11-29 13:41 | NUR ---
Nursing Note: Dr. Andersen assessed and ordered medications for the patient. Ativan 1mg PO Q6HR for anxiety or agitation, may repeat in 40 minutes if not effective; Seroquel 100 mg PO one-time now dose, Seroquel 100 mg PO BID 0800 and 1700, Seroquel 200 mg PO scheduled at HS, and Seroquel 100 mg PRN at HS if [address] Andersen recommends that for severe agitation the patient be given Ativan 2 mg IM, Benedryl 50 mg IM, and Haldol 5 mg IM. ER doctor will need to place the orders for medications for severe agitation when needed. Will continue to monitor.
--- NOTE | 2019-11-29 14:34 | NUR ---
Nursing Note: Pt napped for awhile. He is now up at the nurses' stations talking to staff. He is smiling and singing. He denies feeling SI. He does not appear to have insight as to why he is in the hospital. He states he came because his fiance and mom wanted him to. No S&S of distress. Will continue to monitor.
--- NOTE | 2019-11-29 15:23 | NUR ---
Nursing Note: Pt laying in bed on L side with eyes closed, no S&S of distress, RR even and unlabored. [employer] applied computer science professor, Nir rewrote 5150 for grave disability. Pt advised of hold. Will continue to monitor.
--- NOTE | 2019-11-29 16:27 | NUR ---
Nursing Note: Pt laying in his bed on his R side, eyes closed, RR even and unlabored, no S&S of distress, will continue to monitor.
--- NOTE | 2019-11-29 17:00 | NUR ---
Nursing Note: Pt laying on his back with his eyes closed, RR even and unlabored, no S&S of distress, will continue to monitor.
[2019-11-29] MEDS: quetiapine 100mg tablet PO SCH (17:30)
--- NOTE | 2019-11-29 18:05 | NUR ---
Nursing Note; Pt refused 1730 dose of Seroquel because the medication is making him sleepy and he does not want to continue to sleep. Pt has no S&S of distress, RR even and unlabored, will continue to monitor.
[2019-11-29] MEDS ORDERED: diphenhydrAMINE 50 mg/ml inj ONE (18:20)
[2019-11-29] MEDS ORDERED: haloperidol lactate 5mg/ml inj ONE (18:20)
[2019-11-29] MEDS ORDERED: LORazepam 2 mg/ml vial ONE (18:21)
--- NOTE | 2019-11-29 18:22 | NUR ---
Nursing Note: Pt became increasingly agitated and yelling, slammed phone down and demanded to leave. Security called and pt continued yelling. Notified Dr. Jorgensen, received order for Benadryl 50 mg IM, Ativan 2 mg IM and Haldol 5 mg IM. Pt allowed staff to give injections. Will continue to monitor.
--- NOTE | 2019-11-29 20:00 | NUR ---
Pt resting quietly, respirations normal, no s/s of distress.
[2019-11-29] MEDS ORDERED: quetiapine 100mg tablet PO SCH (21:00)
--- NOTE | 2019-11-29 22:00 | NUR ---
Pt resting quietly, respirations normal, no s/s of distress.
--- NOTE | 2019-11-30 00:31 | NUR ---
Pt resting quietly, respirations normal, no s/s of distress.
--- NOTE | 2019-11-30 02:15 | NUR ---
Pt resting quietly, respirations normal, no s/s of distress.
--- NOTE | 2019-11-30 03:44 | NUR ---
Pt resting quietly, respirations normal, no s/s of distress.
[2019-11-30 05:12] VITALS: BP 116/73
--- NOTE | 2019-11-30 06:01 | NUR ---
Pt resting quietly, respirations normal, no s/s of distress.
--- NOTE | 2019-11-30 06:26 | NUR ---
Assumed care of client. Client awake and asking why he is here. He wants to speak to a advertising supervisor. Gave client the number or patient advocate.
[2019-11-30] MEDS: quetiapine 100mg tablet PO SCH (07:43)
[2019-11-30] MEDS ORDERED: LORazepam 1 MG tablet PO ONE (08:15)
--- NOTE | 2019-11-30 08:27 | NUR ---
Client eloped to registration and was brought back by security
--- NOTE | 2019-11-30 09:38 | NUR ---
Client continues to sleep in no apparent distress. Registration attempted to do paperwork with her, but she declined at thsi time as she is very tired.
--- NOTE | 2019-11-30 11:10 | NUR ---
Pt laying on his back with his eyes closed, RR even and unlabored, no S&S of distress, will continue to monitor.
--- NOTE | 2019-11-30 12:10 | NUR ---
Pt awake and asking for crackers
--- NOTE | 2019-11-30 12:47 | NUR ---
Pt awake and speaking calmly on the phone to his grandma.
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
--- NOTE | 2019-11-30 13:34 | NUR ---
CLIENT OFF THE UNIT WITH ROSENDA
== END 2019-11-30 13:51 ==
LOC: ER 23:54
DX: R45.851 Suicidal ideations (principal); F15.90 Other stimulant use, unspecified, uncomplicated; Z72.89 Other problems related to lifestyle; Z79.899 Other long term (current) drug therapy
CPT/HCPCS: 36415; 80053; 80305; 80320; 80329; 81001; 85025; 96372; 99285; J1200; J1630; J2060

== ENCOUNTER 2020-11-06 00:54 | Emergency (ER) | payer BC, MEDICAID ==
[~2020-11-06] VITALS: Ht 172.7 cm; Wt 75.0 kg
[~2020-11-06 00:54] MED LIST changes: -NO HOME MEDS
[2020-11-06] MEDS ORDERED: ketorolac tromethamine 15mg/ml inj. IM ONE (01:40)
--- NOTE | 2020-11-06 01:46 | NUR ---
FOUND A MUSCLE CORD JUST NEXT TO HIS SCAPULA THAT WAS THE SIZE OF A DIME. MASSAGED IT OUT AND AROUND THE AREA AND IT FEELS SO MUCH BETTER TO HIM. INFORMED MD. ORDERED TORODOL, WHICH I GAVE. IN VISITING WITH THE PT NOW.
[2020-11-06] MEDS ORDERED: QUET200T PO (01:51)
[2020-11-06 01:55] VITALS: BP 125/84
== END 2020-11-06 01:56 | disposition home or self-care (01) ==
LOC: ER 00:56
DX: M62.838 Other muscle spasm (principal); M25.512 Pain in left shoulder; R11.0 Nausea; F15.90 Other stimulant use, unspecified, uncomplicated; Z76.0 Encounter for issue of repeat prescription; Z72.89 Other problems related to lifestyle; Z79.899 Other long term (current) drug therapy
CPT/HCPCS: 96372; 99283; J1885

== ENCOUNTER 2021-03-27 09:54 | Emergency (ER) | payer BC, MEDICAID ==
[~2021-03-27] VITALS: Ht 172.7 cm; Wt 58.6 kg
[~2021-03-27 09:54] MED LIST changes: -QUET100T33 PO; +QUET100T34 PO; +QUET200T PO
[2021-03-27 10:03] VITALS: BP 138/84
[2021-03-27] MEDS ORDERED: HYDR50TA65 PO (11:58)
== END 2021-03-27 13:37 | disposition home or self-care (01) ==
LOC: ER 09:55
DX: F41.9 Anxiety disorder, unspecified (principal); F20.9 Schizophrenia, unspecified; F15.10 Other stimulant abuse, uncomplicated; F12.10 Cannabis abuse, uncomplicated; F32.9 Major depressive disorder, single episode, unspecified; Z76.0 Encounter for issue of repeat prescription
CPT/HCPCS: 99281

== ENCOUNTER 2021-04-12 05:35 | Emergency (ER) | payer BC, MEDICAID ==
[~2021-04-12] VITALS: Ht 172.7 cm; Wt 68.2 kg
[~2021-04-12 05:35] MED LIST changes: +HYDR50TA65 PO
[2021-04-12 05:51] VITALS: BP 109/88
--- NOTE | 2021-04-12 06:43 | NUR ---
PAGED MEDICAL SUPERINTENDENT @[phone] FOR SPLINT
--- NOTE | 2021-04-12 07:10 | NUR ---
pt reswabbed for covid as lab called saying first was done incorrectly
--- NOTE | 2021-04-12 07:33 | NUR ---
PAGED SPECIAL TECHNICAL OPERATIONS OFFICER @[phone]
--- NOTE | 2021-04-12 07:35 | NUR ---
FIELD SALES MANAGER IS AWARE AND WILL BE DOWN TO PLACE SPLINT
[2021-04-12] MEDS ORDERED: HYDROcodone/acetaminophen 5mg/325mg tablet PO ONE (08:00)
== END 2021-04-12 08:43 | disposition home or self-care (01) ==
LOC: ER 05:36
DX: S62.336A Displaced fracture of neck of fifth metacarpal bone, right hand, initial encounter for closed fracture (principal); Z20.822 Contact with and (suspected) exposure to COVID-19; R05.9 Cough, unspecified; J00 Acute nasopharyngitis [common cold]; F12.90 Cannabis use, unspecified, uncomplicated; F15.90 Other stimulant use, unspecified, uncomplicated; Z72.89 Other problems related to lifestyle; Z79.899 Other long term (current) drug therapy; X58.XXXA Exposure to other specified factors, initial encounter; Y93.89 Activity, other specified; Y92.89 Other specified places as the place of occurrence of the external cause; Y99.8 Other external cause status
CPT/HCPCS: 29125; 73130; 87635; 99284; C9803

== ENCOUNTER 2021-04-14 10:40 | Emergency (ER) | payer BC, MEDICAID ==
[~2021-04-14] VITALS: Ht 172.7 cm; Wt 65.9 kg
[2021-04-14 10:46] VITALS: BP 140/91
== END 2021-04-14 11:04 ==
LOC: ER 10:40
DX: Z00.8 Encounter for other general examination (principal); S00.511A Abrasion of lip, initial encounter; R47.81 Slurred speech; R45.1 Restlessness and agitation; F31.9 Bipolar disorder, unspecified; F20.9 Schizophrenia, unspecified; F12.90 Cannabis use, unspecified, uncomplicated; F15.90 Other stimulant use, unspecified, uncomplicated; Z72.89 Other problems related to lifestyle; Z79.899 Other long term (current) drug therapy; X58.XXXA Exposure to other specified factors, initial encounter; Y93.89 Activity, other specified; Y92.89 Other specified places as the place of occurrence of the external cause; Y99.8 Other external cause status
CPT/HCPCS: 99283

== ENCOUNTER 2021-06-02 19:20 | Emergency (ER) | payer BC, MEDICAID | END 2021-06-02 20:16 | disposition left against medical advice (07) | LOC: ER 19:21 | DX: Z44.8 Encounter for fitting and adjustment of other external prosthetic devices (principal); Z53.21 Procedure and treatment not carried out due to patient leaving prior to being seen by health care provider ==

== ENCOUNTER 2022-02-25 08:05 | Emergency (ER) | payer MEDICAID ==
[~2022-02-25] VITALS: Ht 172.7 cm; Wt 78.8 kg
[2022-02-25 08:23] VITALS: BP 124/87
[2022-02-28] MEDS ORDERED: ATI1T PO (14:41)
== END 2022-02-25 20:48 | disposition left against medical advice (07) ==
LOC: ER 08:06
DX: Z00.8 Encounter for other general examination (principal); Z53.21 Procedure and treatment not carried out due to patient leaving prior to being seen by health care provider

== ENCOUNTER 2024-05-02 15:58 | Emergency (ER) | payer MEDICAID ==
[~2024-05-02] VITALS: Ht 175.3 cm; Wt 91.5 kg
[~2024-05-02 15:58] MED LIST changes: +ATI1T PO
[2024-05-02 16:01] VITALS: BP 120/85; PULSE 102; RESP 16; TEMP 98.1; O2SAT 99
[2024-05-02] MEDS ORDERED: QUET-1 PO (17:04)
== END 2024-05-02 17:16 | disposition home or self-care (01) ==
LOC: ER 15:59
DX: Z00.00 Encounter for general adult medical examination without abnormal findings (principal); Z76.0 Encounter for issue of repeat prescription; F31.9 Bipolar disorder, unspecified; F20.9 Schizophrenia, unspecified; F12.90 Cannabis use, unspecified, uncomplicated; F15.90 Other stimulant use, unspecified, uncomplicated
CPT/HCPCS: 99281